=== PATIENT | male | born 1955 | race Caucasian/White ===

== ENCOUNTER 2016-12-29 04:20 | Emergency (ER) | payer OTHER ==
[~2016-12-29] VITALS: Ht 172.7 cm; Wt 88.0 kg
[~2016-12-29 04:20] MED LIST: GLIPIZIDE ER10 M1 PO; HYDROCODONE BIT1 T11 PO; KEFLEX500 M1 PO; LIPITOR10 MG PO; LISINOPRIL10 M1 PO; METFORMIN1000 MG PO; NAPROSYN500 MG PO; ROPINIROLE HYDRO1 MG PO; SILVADENE1% TP
[2016-12-29] MEDS ORDERED: CLINDAMYCIN HC300 MG PO (04:49)
== END 2016-12-29 05:19 | disposition home or self-care (01) ==
LOC: ED 04:20
DX: S00.86XA Insect bite (nonvenomous) of other part of head, initial encounter (principal); L08.9 Local infection of the skin and subcutaneous tissue, unspecified; H57.8 Other specified disorders of eye and adnexa; F17.200 Nicotine dependence, unspecified, uncomplicated; Z79.899 Other long term (current) drug therapy; W57.XXXA Bitten or stung by nonvenomous insect and other nonvenomous arthropods, initial encounter; Y93.9 Activity, unspecified; Y92.9 Unspecified place or not applicable; Y99.9 Unspecified external cause status

== ENCOUNTER → 2017-01-16 | Outpatient (CLI) | payer OTHER ==
[~2017-01-16] MED LIST changes: +CLINDAMYCIN HC300 MG PO
== END | disposition home or self-care (01) ==
LOC: CT 01-13 11:00
DX: J44.9 Chronic obstructive pulmonary disease, unspecified (principal); D50.0 Iron deficiency anemia secondary to blood loss (chronic); J32.2 Chronic ethmoidal sinusitis; H70.92 Unspecified mastoiditis, left ear; J34.2 Deviated nasal septum; I10 Essential (primary) hypertension; E11.9 Type 2 diabetes mellitus without complications; F17.200 Nicotine dependence, unspecified, uncomplicated

== ENCOUNTER 2017-10-22 01:56 | Inpatient (IN) | payer OTHER ==
[2017-10-22] VITALS (32 sets, daily range): BP systolic 83–132; BP diastolic 47–84
[~2017-10-22] VITALS: Ht 172.7 cm; Wt 91.7 kg
--- NOTE | ~2017-10-22 | EKG ---
[place], [place] ELECTROCARDIOGRAM REPORT NAME: KAREN DHILLON UNIT #: [id number] ROOM: [place] [address] DOCTOR: KIM ALVARADO MD,VICKEY BIRTHDATE: [birth year] DOS: 10/22/2017 The electrocardiogram done for the patient on 10/22/2017 at [address] segment elevation to lead 3 aVF and the depression of ST-T segment in lead V2, V3 and the current finding was suggestive highly of inferior myocardial infarction. VICKEY ALVAREZ MD CM:EKGRPT:ELECTROCARDIOGRAM REPORT [id number] VICKEY ALVARADO MD
--- NOTE | ~2017-10-22 | EKG ---
[place], [place] ELECTROCARDIOGRAM REPORT NAME: KAREN DHILLON UNIT #: [id number] ROOM: [place] [address] DOCTOR: KIM ALVARADO MD,VICKEY BIRTHDATE: [birth year] DOS: 10/22/2017 The electrocardiogram done on 10/22/2017 at 02:15 a.m. Heart rate was noted at 70 beats per minute, normal sinus rhythm. APCs were noted. Minimal elevation of ST-T was noted in the 3 and aVF leads. Nonspecific ST-T changes in the chest leads were noted of lead V5 and V6. VICKEY ALVAREZ MD CM:EKGRPT:ELECTROCARDIOGRAM REPORT [id number] VICKEY ALVARADO MD
--- NOTE | ~2017-10-22 | CON ---
[place], [place] REPORT OF CONSULTATION NAME: KAREN DHILLON [facility] #: [id number] UNIT #: [id number] ROOM: [place] [address] DOCTOR: VICKEY PHOENIX MD BIRTHDATE: [birth year] DOS: 10/22/2017 PULMONARY CONSULTATION AND EVALUATION MANAGEMENT CONSULTATION REQUESTED BY: Hospitalist Services. REASON FOR CONSULTATION: Assessment of the current acute respiratory complaints and other reasons. HISTORY OF PRESENT ILLNESS: This is a 61-year-old white male patient with past history of COPD, hypertension, diabetes mellitus. The patient was brought to the hospital as the patient fell down. He has been noted with symptoms of dizziness and passed out on the ground. The patient fall has been noted about 3 times. He has been brought to the hospital for further assessment. The patient has not been noted any symptoms of chest pain at the present time or any chest trauma with the fall. The patient does report symptoms of coughing. The patient with chest congestion, which were noted nonproductive cough. Denies symptoms of wheezing. Tightness in the chest reported. There were no symptoms of angina or orthopnea reported by the patient. The patient has been admitted to the hospital as he was noted significant hypotension as well as the patient presented to the Emergency Room, blood pressure noted 70 systolic. He had been given intervenous fluid as well as ordered the intravenous dopamine. This morning at the time of assessment in the Intensive Care Unit, the patient has been noted much more awake at the present time. He denies symptoms of shortness of breath at the present time. Denies symptoms of nausea or vomiting. REVIEW OF SYSTEMS: CONSTITUTIONAL SYMPTOMS: He was still noted symptoms of fatigue and tiredness. Denies any symptoms of fever or chills at home. EYES: Denies any burning, redness, or tenderness. EARS, NOSE, THROAT SYMPTOMS: Denies sore throat, hoarseness, otalgia, postnasal drainage or epistaxis. CARDIOVASCULAR: The patient denies any symptoms of palpitations, noted dizziness intermittently recently in the past couple of days. Denies any edema or pain in the lower extremities. GASTROINTESTINAL: The patient has been reported with diarrhea for the past 2-3 days, which was described to be nonbloody. There were no symptoms of hematemesis, melena, hematochezia, nausea, vomiting at this time. GENITOURINARY: No dysuria, suprapubic pain, hematuria. MUSCULOSKELETAL: Without any acute joint pain, redness, or tenderness. SKIN: Denies abnormal lesions or rashes. Remaining system was reviewed for the patient, which were noted all negative. PAST MEDICAL HISTORY: The patient was known with history of: 1. Essential hypertension. 2. History of type 2 diabetes mellitus. 3. History of chronic obstructive pulmonary disease and acute chronic heavy nicotine dependence. [place], [place] REPORT OF CONSULTATION NAME: KAREN DHILLON UNIT #: [id number] ROOM: [place] [address] DOCTOR: VICKEY PHOENIX MD BIRTHDATE: [birth year] SOCIAL HISTORY: The patient stated that he is , but from his . He has been noted tobacco user since teenager up to 4 packs of cigarettes a day. The patient used to smoke sometimes, other times a pack of cigarettes per day intermittently. Denies any history of long-term alcohol dependence. Denies history of illicit drug use as well. PAST SURGICAL HISTORY: Described none by the patient. FAMILY HISTORY: Not known by the patient. MEDICATIONS: The medications at home were listed as use of glipizide, lisinopril, metformin, lisinopril, naproxen, clindamycin and Vicodin. ALLERGIES: THE PATIENT REPORTED ALLERGY TO ASPIRIN CAUSING ANAPHYLAXIS. PHYSICAL EXAMINATION: GENERAL: This is a 61-year-old white male who has been currently noted comfortable at this time without any acute distress. Height of 5 feet 8 inches, weight of 202 pounds, BMI 30.7 on admission. VITAL SIGNS: The vital signs which has been recorded shows the blood pressure noted as lowest of 83, previously noted 90, blood pressure later today noted 102/67. The heart rate ranged between 95-100. The respiratory rate recorded as 20-18, temperature noted normal. Pulse oxygen saturation recorded as 98% on 2 liters nasal cannula at rest. HEENT: Head was atraumatic. Eyes nonicterus. NECK: Supple. CARDIOVASCULAR: S1, S2 is audible. LUNGS: Essentially noted generally reduced breath sounds in the lungs bilaterally without any crackles or wheezing at the present time of assessment. ABDOMEN: Noted soft, nontender, bowel sounds present. EXTREMITIES: Without any acute edema, clubbing, cyanosis. CENTRAL NERVOUS SYSTEM: Cranial nerves 2-12 intact. MUSCULOSKELETAL: Without acute deformity. SKIN: Visible skin area no lesions or rashes. LABORATORY DATA: CBC done this morning on admission, WBC count 11.5, hemoglobin 11.5, hematocrit 37.3, platelet count was normal. Lactic acid 1.9. The PT and PTT were noted as normal. Ionized calcium normal 4.55. CMP this morning for the patient's glucose 178, BUN 20, creatinine 1.44. Troponin first set was noted 2.0. Albumin 2.3. Second set troponin 1.80. The third set of troponin elevated at 3.190. CT scan of the head, which was done without contrast was noted without any acute intracranial pathology. CT scan of the cervical spine was also noted without any acute traumatic fracture, dislocation or others. CT scan of the chest, which was done without contrast that was personally reviewed shows evidence of moderate sized bilateral pleural fluid was noted with area of compression atelectasis. There was no gross area of pulmonary consolidation was noted. Haziness noted in the lung parenchyma most likely related to interstitial edema is very likely. Lack of the IV contrast does limit the assessment of the mediastinal structures more accurately; however, small lymph node suspected most likely non-pathological. The electrocardiogram was noted [place], [place] REPORT OF CONSULTATION NAME: KAREN DHILLON UNIT #: [id number] ROOM: [place] [address] DOCTOR: KIM ALVARADO MD,[facility] BIRTHDATE: [birth year] with possibility of inferior myocardial wall infarction. IMPRESSION: 1. The patient has been currently admitted to the hospital noted with hypertension on admission, most likely related to the ST segment elevation myocardial infarction of inferior wall. 2. Bilateral large pleural fluid was noted to moderate size related to the current congestive heart failure. Area of compression atelectasis. There were no signs or symptoms noted at this time for the acute pneumonia. 3. The patient with a history of long-term tobacco use with history of chronic obstructive pulmonary disease, does not seem to have an acute exacerbation at the present time of assessment. 4. Acute kidney injury secondary to hypertension and acute tubular necrosis and congestive heart failure, suspected cardiomyopathy as well. PLAN OF MANAGEMENT: Treatment with the diuretic use of the vasopressor. Cardiology consultation. The patient has been getting therapeutic intervention as it just happened and that will be continued. Bronchodilator will be continued for symptomatic management. Monitor pleural fluid. If necessary, thoracentesis could be done in case of worsening of the pleural fluids. Tobacco abstinence was encouraged. Starting the patient on nicotine replacement patches if the patient develop any nicotine withdrawal symptoms. Other supportive plan of management, care plan and other therapies and usual care. The assessment and management was discussed with Dr. Moiz Alexander. VICKEY ALVAREZ MD CM:CONSTR:REPORT OF CONSULTATION 1438 10/23/17 0605 interface
[~2017-10-22 01:56] MED LIST changes: -LIPITOR10 MG PO; +LIPITOR20 MG PO
[2017-10-22 02:28] LABS: BASO % 0.3 % (0.0-1.0); EOS # 0.2 10*3/uL (0.0-0.4); EOS % 1.4 % (1.0-4.0); HEMATOCRIT 37.3 % (42.0-52.0); HEMOGLOBIN 11.5 g/dl (14.0-18.0); LYMPH # 1.6 10*3/uL (1.3-4.4); LYMPH % 13.5 % (27.0-41.0); MEAN CELL VOLUME 97.9 fl (80.0-94.0); MEAN CORPUSCULAR HGB 30.2 pg (27.0-31.0); MEAN CORPUSCULAR HGB CONC 30.8 g/dl (33.0-37.0); MEAN PLATELET VOLUME 10.4 fl (9.6-12.3); MONO # 0.8 10*3/uL (0.1-1.0); MONO % 6.6 % (3.0-9.0); NEUT % 77.9 % (47.0-73.0); PLATELET COUNT AUTOMATED 243 10*3/uL (130-400); RED BLOOD COUNT 3.81 10*6/uL (4.50-5.90); RED CELL DISTRI WIDTH 14.2 % (0-14.5); WHITE BLOOD COUNT 11.5 10*3/uL (4.8-10.8)
[2017-10-22 02:39] LABS: ACT PARTIAL THROMBO TIME 23.5 SECONDS (20.8-31.5)
[2017-10-22 02:48] LABS: ALBUMIN 2.3 gm/dl (3.1-4.5); ALKALINE PHOSPHATASE 143 U/L (45-117); BUN 20 mg/dl (7-24); CHLORIDE 111 mmol/L (98-107); CREATININE 1.44 mg/dL (0.70-1.30); LIPASE 216 U/L (73-393); POTASSIUM 4.1 mmol/L (3.5-5.1); SGOT/AST 33 IU/L (3-35); SGPT/ALT 23 U/L (12-78); SODIUM 143 mmol/L (136-145); TOTAL PROTEIN 6.4 gm/dL (6.4-8.2)
[2017-10-22] MEDS ORDERED: FEOSOL325 MG PO (13:18)
[2017-10-22] MEDS ORDERED: NEURONTIN800 MG PO (13:19)
[2017-10-22] MEDS ORDERED: REQUIP1 M1 PO (13:20)
[2017-10-22] MEDS ORDERED: INCRUSE ELLI62.5 MCG INH (13:20)
[2017-10-22] MEDS ORDERED: TRAZODONE50 MG PO (13:21)
[2017-10-22] MEDS ORDERED: ERGOCAL2500 UNIT PO (13:22)
[2017-10-22] MEDS ORDERED: PROAIR HFA8.5 GM INH (13:23)
[2017-10-22] MEDS ORDERED: TYLENOL325 M2 PO (13:23)
[2017-10-22 13:49] LABS: BILIRUBIN NEGATIVE (NEGATIVE); BLOOD 2+ (NEGATIVE); CLARITY CLEAR (CLEAR); COLOR YELLOW (YELLOW); GLUCOSE NEGATIVE (NEGATIVE); KETONE NEGATIVE (NEGATIVE); LEUKO ESTERASE NEGATIVE (NEGATIVE); NITRITE NEGATIVE (NEGATIVE); UROBILINOGEN 0.2 E.U./dl (0.2-1.0)
[2017-10-22 13:55] LABS: BACTERIA 1+; RBC 0-2 rbc/hpf (0-2); WBC 16-20 wbc/hpf (0-5)
[2017-10-22] MEDS ORDERED: ATORVASTATIN CA80 M1 PO (16:54)
[2017-10-23] VITALS: BP 83/49
[2017-10-23 01:00] VITALS: BP 100/60
[2017-10-23 02:00] VITALS: BP 106/62
[2017-10-23 03:00] VITALS: BP 113/67
[2017-10-23 03:44] LABS: BASO % 0.4 % (0.0-1.0); EOS # 0.2 10*3/uL (0.0-0.4); HEMOGLOBIN 10.6 g/dl (14.0-18.0); LYMPH # 1.6 10*3/uL (1.3-4.4); LYMPH % 13.9 % (27.0-41.0); MEAN CORPUSCULAR HGB 30.5 pg (27.0-31.0); MEAN CORPUSCULAR HGB CONC 31.2 g/dl (33.0-37.0); MEAN PLATELET VOLUME 10.2 fl (9.6-12.3); MONO % 8.4 % (3.0-9.0); NEUT # 8.5 10*3/uL (2.3-7.9); PLATELET COUNT AUTOMATED 209 10*3/uL (130-400); RED BLOOD COUNT 3.47 10*6/uL (4.50-5.90); RED CELL DISTRI WIDTH 14.3 % (0-14.5); WHITE BLOOD COUNT 11.4 10*3/uL (4.8-10.8)
[2017-10-23 04:00] VITALS: BP 103/61
[2017-10-23 04:00] LABS: ALBUMIN 2.1 gm/dl (3.1-4.5); ALKALINE PHOSPHATASE 123 U/L (45-117); BUN 20 mg/dl (7-24); CHLORIDE 108 mmol/L (98-107); CHOLESTEROL 114 mg/dL (<200); CREATININE 1.38 mg/dL (0.70-1.30); FREE T4 0.84 ng/dl (0.76-1.46); HDL CHOLESTEROL 51 mg/dl (40-60); LDL CHOLESTEROL 40 mg/dL (9-159); PHOSPHOROUS 4.5 mg/dL (2.5-4.9); POTASSIUM 4.1 mmol/L (3.5-5.1); SGOT/AST 101 IU/L (3-35); SGPT/ALT 26 U/L (12-78); SODIUM 142 mmol/L (136-145); TOTAL PROTEIN 5.4 gm/dL (6.4-8.2); TRIGLYCERIDES 113 mg/dl (<150); VLDL CHOLESTEROL 23 mg/dL (6-40)
[2017-10-23 05:00] VITALS: BP 98/50
== END 2017-10-23 05:12 | disposition short-term general hospital (02) | DRG 280 ==
LOC: ED 01:56 → ICCU 04:18 → EDHOLD 04:18 → ICCU 04:58
PROVIDERS: Emergency Medicine Emergency Medical Services; Student in an Organized Health Care Education/Training Program
PROC: 5A1935Z Respiratory Ventilation, Less than 24 Consecutive Hours (ICD-10-PCS; principal; 2017-10-22)
DX: I21.4 Non-ST elevation (NSTEMI) myocardial infarction (principal); E43 Unspecified severe protein-calorie malnutrition; N17.0 Acute kidney failure with tubular necrosis; I13.0 Hypertensive heart and chronic kidney disease with heart failure and stage 1 through stage 4 chronic kidney disease, or unspecified chronic kidney disease; E11.40 Type 2 diabetes mellitus with diabetic neuropathy, unspecified; E11.649 Type 2 diabetes mellitus with hypoglycemia without coma; E11.65 Type 2 diabetes mellitus with hyperglycemia; I50.9 Heart failure, unspecified; E78.5 Hyperlipidemia, unspecified; J44.9 Chronic obstructive pulmonary disease, unspecified; F17.210 Nicotine dependence, cigarettes, uncomplicated; D53.9 Nutritional anemia, unspecified; D72.9 Disorder of white blood cells, unspecified; D72.810 Lymphocytopenia; E87.8 Other disorders of electrolyte and fluid balance, not elsewhere classified; E66.9 Obesity, unspecified; E55.9 Vitamin D deficiency, unspecified; N18.3 Chronic kidney disease, stage 3 (moderate); E11.22 Type 2 diabetes mellitus with diabetic chronic kidney disease; Z82.49 Family history of ischemic heart disease and other diseases of the circulatory system; Z88.6 Allergy status to analgesic agent; Z91.030 Bee allergy status; Z71.6 Tobacco abuse counseling; Z68.31 Body mass index [BMI] 31.0-31.9, adult

== ENCOUNTER 2017-10-24 11:33 | Emergency (ER) | payer OTHER ==
[~2017-10-24] VITALS: Ht 172.7 cm; Wt 93.0 kg
[~2017-10-24 11:33] MED LIST changes: +ATORVASTATIN CA80 M1 PO; +ERGOCAL2500 UNIT PO; +FEOSOL325 MG PO; +INCRUSE ELLI62.5 MCG INH; +NEURONTIN800 MG PO; +PROAIR HFA8.5 GM INH; +REQUIP1 M1 PO; +TRAZODONE50 MG PO; +TYLENOL325 M2 PO
== END 2017-10-24 12:52 | disposition left against medical advice (07) ==
LOC: ED 11:33
DX: R79.9 Abnormal finding of blood chemistry, unspecified (principal); F17.200 Nicotine dependence, unspecified, uncomplicated; Z91.030 Bee allergy status; Z88.6 Allergy status to analgesic agent; Z79.899 Other long term (current) drug therapy

== ENCOUNTER 2017-10-30 03:31 | Inpatient (IN) | payer OTHER ==
[~2017-10-30] VITALS: Ht 172.7 cm; Wt 93.6 kg
[2017-10-30] VITALS (8 sets, daily range): BP systolic 125–163; BP diastolic 68–85
--- NOTE | ~2017-10-30 | CON ---
[place], [place] REPORT OF CONSULTATION NAME: KAREN DHILLON UNIT #: [id number] ROOM: [facility] DOCTOR: VICKEY PHOENIX MD BIRTHDATE: [birth year] DOS: 10/30/2017 REASON FOR CONSULTATION: To assess the patient's current symptoms of shortness of breath. HISTORY OF PRESENT ILLNESS: A 61-year-old white male patient who has been recently known and has been admitted to the hospital this morning. He has been admitted to the hospital noted with increased symptoms of shortness of breath. He has been admitted to the hospital recently and noted with ST segment elevation myocardial infarction involving the inferior myocardial wall. The patient was transferred to [facility]. The patient does not remember the exact workup of intervention clearly. He stated the cardiac catheterization was done, but he signed against medical advice later on. The patient denies any symptoms of chest pain. He does have symptoms of shortness of breath that occurs with exertion with a cough, which has been noted intermittent sputum expectoration. Denies symptoms of hemoptysis. Denies symptoms of chest pain at the present time. Denies symptoms of wheezing. REVIEW OF SYSTEMS: CONSTITUTIONAL: Fatigue and tiredness reported without any symptoms of fever or chills. EYES: Denies burning, redness, tenderness. EAR, NOSE, AND THROAT SYMPTOMS: Denies sore throat, hoarseness, otalgia, postnasal drainage or epistaxis. CARDIOVASCULAR: Denies angina pain at present time, palpitations, edema of the lower extremities, orthopnea. GASTROINTESTINAL: No dysphagia, nausea, vomiting, diarrhea, abdominal pain, hematemesis, melena, hematochezia, abnormal weight loss history. GENITOURINARY: No dysuria, suprapubic pain, hematuria. MUSCULOSKELETAL: No acute joint pain, redness, or tenderness. SKIN: Denies any lesions or rashes. CENTRAL NERVOUS SYSTEM: The patient had syncopal episodes. Remaining systems were reviewed, they were noted all negative. PAST MEDICAL HISTORY: 1. Noted with history of essential hypertension. 2. Chronic obstructive pulmonary disease. 3. Type 2 diabetes mellitus. 4. Coronary artery disease with recent myocardial infarction involving the inferior wall for the patient on 10/22/2017. PAST SURGICAL HISTORY: Possible cardiac catheterization at [facility], medical records were not available. SOCIAL HISTORY: The patient is , but later on. He has noted tobacco use since teenager up to 4 packs of cigarettes per day, stating that he has been currently smoking a pack to [id number] cigarettes per day. Denies any history of alcohol use or any illicit drugs. [place], [place] REPORT OF CONSULTATION NAME: KAREN DHILLON UNIT #: [id number] ROOM: [facility] DOCTOR: VICKEY PHOENIX MD BIRTHDATE: [birth year] FAMILY HISTORY: Unknown. MEDICATIONS: Current administered medication today was noted as use of insulin, heparin intravenously therapeutic dose, temazepam, Lasix intravenously, lorazepam, Vicodin and other p.r.n. medications for different symptoms. DRUG ALLERGIES: NOTED ALLERGY TO ASPIRIN REPORTED WITH ANAPHYLAXIS. PHYSICAL EXAMINATION: GENERAL: A 61-year-old male who has been currently noted without any acute distress, sitting on the side of the bed this morning of assessment at about 8:15 a.m. Height 5 feet 8 inches, weight of 206 pounds, BMI 31.3. VITAL SIGNS: The patient which have been recorded shows the temperature noted as normal, respiratory rate 20-18, heart rate of 96-101, blood pressure 125/71-141/78. Pulse oxygen saturation on 4 liters cannula is 98% saturation. HEENT: Moderate obesity. Examination shows head was atraumatic. Eyes nonicterus. NECK: Supple. CARDIOVASCULAR: S1, S2 is audible. LUNGS: Noted with decreased breath sounds in the lungs for the patient noted in the lower portion of the lungs. There was no wheezing or crackles. ABDOMEN: Noted soft, nontender with [id number] obesity. Bowel sounds present without any tenderness. EXTREMITIES: Noted without any acute edema. CENTRAL NERVOUS SYSTEM: Cranial nerves 2-12 intact. No focal deficit. MUSCULOSKELETAL: Without acute deformities. SKIN: No lesions or rashes. LABORATORY DATA: CBC of this morning: WBC count is normal, hemoglobin 12.1, hematocrit 39.3, platelet count was normal. Lactic acid 1.2. The INR was noted at 0.9. CMP this morning, BUN 17, creatinine 1.31. Albumin of 2.6. Arterial blood gas this morning, 4 liters, pH of 7.37, pCO2 of 51, pO2 of 73. Troponin for the patient 4 sets were noted at one point rather 2.42 and the second troponin noted 1.98. Chest x-ray of the patient that was done, 1 view that was done for this patient shows pleural effusion noted with interstitial edema of the patient as well. IMPRESSION: 1. The patient will be currently admitted to the hospital, appears to have most likely congestive heart failure with non-ST segment elevation myocardial infarction, very likely with associated pleural fluid. 2. The patient will be considered acute hypoxic respiratory failure requiring 4 liters of oxygen supplementation with the O2 noted only 78%. 3. History of nonadherence to the treatment noncompliance. 4. Signing out against medical advice. The patient has poor insight to his known medical illnesses. 5. Long-term tobacco use with COPD seem to have an acute exacerbation at the present time. PLAN OF TREATMENT: Diuretic therapy. Continue oxygen supplement at this time. [place], [place] REPORT OF CONSULTATION NAME: KAREN DHILLON UNIT #: [id number] ROOM: [facility] DOCTOR: KIM ALVARADO MD,VICKEY BIRTHDATE: [birth year] BiPAP only if the oxygen desaturation occurs further and increased oxygen requirement to reduce the work of breathing. Tobacco cessation has been addressed with the patient. The Cardiology consultation was pending. Continue IV heparin to maintain therapeutic PTT for the patient for the acute myocardial infarction protocol. Usual care. Supportive therapy, plan of management and other care. The patient was also noted with evidence which appears like chronic kidney disease stage 3 with stable creatinine noted since previous lab testing of 10/23/2017. VICKEY ALVAREZ MD CM:CONSTR:REPORT OF CONSULTATION 1255 10/31/17 0156 interface
--- NOTE | ~2017-10-30 | EKG ---
[place], [place] ELECTROCARDIOGRAM REPORT NAME: KAREN DHILLON UNIT #: [id number] ROOM: [facility] DOCTOR: KIM ALVARADO MD,VICKEY BIRTHDATE: [birth year] DOS: 10/30/2017 ELECTROCARDIOGRAM REPORT DATE AND TIME OF PROCEDURE: 10/30/2017 at 3:41 a.m. FINDINGS: Sinus tachycardia noted, heart rate of 101 beats per minute. Minimal elevation of lead III and aVF was noted. Nonspecific ST-T changes otherwise noted in the other leads. VICKEY ALVAREZ MD CM:EKGRPT:ELECTROCARDIOGRAM REPORT [id number] VICKEY ALVARADO MD
[~2017-10-30 03:31] MED LIST changes: -ERGOCAL2500 UNIT PO; +VITAMIN D50000 UNIT PO
[2017-10-30 03:49] LABS: BASO % 0.4 % (0.0-1.0); EOS # 0.2 10*3/uL (0.0-0.4); EOS % 1.7 % (1.0-4.0); HEMATOCRIT 39.3 % (42.0-52.0); HEMOGLOBIN 12.1 g/dl (14.0-18.0); LYMPH # 1.9 10*3/uL (1.3-4.4); LYMPH % 19.4 % (27.0-41.0); MEAN CELL VOLUME 98.7 fl (80.0-94.0); MEAN CORPUSCULAR HGB 30.4 pg (27.0-31.0); MEAN CORPUSCULAR HGB CONC 30.8 g/dl (33.0-37.0); MEAN PLATELET VOLUME 10.7 fl (9.6-12.3); MONO # 0.7 10*3/uL (0.1-1.0); MONO % 7.5 % (3.0-9.0); NEUT # 6.9 10*3/uL (2.3-7.9); NEUT % 70.9 % (47.0-73.0); PLATELET COUNT AUTOMATED 254 10*3/uL (130-400); RED BLOOD COUNT 3.98 10*6/uL (4.50-5.90); RED CELL DISTRI WIDTH 14.1 % (0-14.5); WHITE BLOOD COUNT 9.8 10*3/uL (4.8-10.8)
[2017-10-30 03:58] LABS: INTERNATIONAL NORM RATIO 0.9 (2.0-3.5)
[2017-10-30 04:07] LABS: ALBUMIN 2.6 gm/dl (3.1-4.5); ALKALINE PHOSPHATASE 160 U/L (45-117); BUN 17 mg/dl (7-24); CHLORIDE 104 mmol/L (98-107); CREATININE 1.31 mg/dL (0.70-1.30); POTASSIUM 4.8 mmol/L (3.5-5.1); SGOT/AST 27 IU/L (3-35); SGPT/ALT 26 U/L (12-78); SODIUM 140 mmol/L (136-145); TOTAL PROTEIN 7.7 gm/dL (6.4-8.2)
[2017-10-30 06:44] LABS: ABG BASE EXCESS 3.8 mmol/L (-2.0-2.0); ABG HCO3 29.3 mmol/l (22-26); ABG O2 SATURATION 95.1 % (95-97); ARTERIAL BLOOD GAS PCO2 51.6 mmHg (35-45); ARTERIAL BLOOD GAS PH 7.372 (7.35-7.45)
[2017-10-30 07:44] LABS: BILIRUBIN NEGATIVE (NEGATIVE); BLOOD 1+ (NEGATIVE); CLARITY CLEAR (CLEAR); COLOR YELLOW (YELLOW); GLUCOSE NEGATIVE (NEGATIVE); KETONE NEGATIVE (NEGATIVE); LEUKO ESTERASE NEGATIVE (NEGATIVE); NITRITE NEGATIVE (NEGATIVE); SPECIFIC GRAVITY 1.015 (1.005-1.030); UROBILINOGEN 0.2 E.U./dl (0.2-1.0)
[2017-10-30 08:00] LABS: BACTERIA TRACE; WBC 0-2 wbc/hpf (0-5)
== END 2017-10-30 09:15 | disposition left against medical advice (07) | DRG 280 ==
LOC: ED 03:31 → EDHOLD 04:49 → ICCU 05:39
PROVIDERS: Emergency Medicine; Internal Medicine Critical Care Medicine; Student in an Organized Health Care Education/Training Program
PROC: 5A09357 Assistance with Respiratory Ventilation, Less than 24 Consecutive Hours, Continuous Positive Airway Pressure (ICD-10-PCS; principal; 2017-10-30)
DX: I21.4 Non-ST elevation (NSTEMI) myocardial infarction (principal); J96.01 Acute respiratory failure with hypoxia; J44.1 Chronic obstructive pulmonary disease with (acute) exacerbation; J90 Pleural effusion, not elsewhere classified; I11.0 Hypertensive heart disease with heart failure; I50.9 Heart failure, unspecified; E11.9 Type 2 diabetes mellitus without complications; E66.9 Obesity, unspecified; I25.10 Atherosclerotic heart disease of native coronary artery without angina pectoris; F17.210 Nicotine dependence, cigarettes, uncomplicated; Z91.030 Bee allergy status; Z79.899 Other long term (current) drug therapy; I25.2 Old myocardial infarction; Z88.6 Allergy status to analgesic agent; Z68.31 Body mass index [BMI] 31.0-31.9, adult; Z71.6 Tobacco abuse counseling

== ENCOUNTER 2017-11-02 05:59 | Inpatient (IN) | payer OTHER ==
[~2017-11-02] VITALS: Ht 172.7 cm; Wt 92.7 kg
[2017-11-02] VITALS (11 sets, daily range): BP systolic 92–135; BP diastolic 47–80
--- NOTE | ~2017-11-02 | PR ---
[place], [place] PROGRESS NOTE NAME: KAREN DHILLON UNIT #: [id number] ROOM: [place] [address] DOCTOR: ELSIE PARTIDA DO BIRTHDATE: [birth year] DOS: 11/04/2017 CODE NOTE: Code was called on 11/04/2017. I proceeded from the ER to the patient's room. Dr. Alexander and Dr. Forrester were already present along with residents and claims support specialist. The patient was found to be unresponsive, bradycardic in the 40s. He initially did have a pulse. Initial vital signs showed bradycardia and appropriate blood pressure and a pulse ox in the mid 90s on room air. Atropine was administered. Pulses reassessed and found to be absent. CPR and ACLS were begun for PEA. Epinephrine was given according to ACLS guidelines. Intubation was performed by Dr. Alexander. See his intubation note. EKG was obtained during pulse checks, which showed no acute ST elevations. Ultrasound was performed to assess for lung sliding to assess for possible pneumothorax. Lung finding was seen bilaterally. The patient had return of spontaneous circulation. CPR efforts were ceased. The patient was transported to the ICU. He was started on dopamine. Front End Wheel Loader Operator consulted, Dr. Boyce. The patient was subsequently transferred to a tertiary care facility. ELSIE PARTIDA DO CM:PNTRANS [id number] ELSIE PARTIDA DO 11/04/172153 interface
--- NOTE | ~2017-11-02 | PR ---
[place], [place] PROGRESS NOTE [id number] UN[facility] #: [id number] ROOM: [place] [address] DOCTOR: FRANCIS SALAZAR MD BIRTHDATE: [birth year] DOS: 11/04/2017 SUBJECTIVE: The patient was seen in the intensive care unit today 11/04/2017 shortly after a bradycardic arrest. He is a 61-year-old man who initially presented to the [facility] on 10/23/2017 after a syncopal episode. He was found to be in complete heart block and was transferred to the [facility] where catheterization was immediately performed. He got a 30% LAD stenosis with a normal left main. The circumflex and right coronary arteries were both 100% occluded. 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 It was not clear whether this represented a true or pseudoaneurysm. The patient was evaluated by cardiothoracic surgery who stated that he would require extensive surgical repair of the mitral annulus with possible need for left ventricular assist after surgery. It was felt that the surgery was beyond the scope at [facility] and plans were made to transfer him to the [facility]. He was accepted there, but refused the transfer because of concerns that his family would not be able to go there. After that, he reportedly signed himself out against medical advice. He was admitted now to the [facility] on 11/02/2017 with worsening shortness of breath and peripheral edema. He was found to be in heart failure. Troponins were elevated, but it was not clear if this was still due to his initial event or a new event. He has been treated medically at [facility] with some clinical improvement, but his blood pressures have been low. This morning, he apparently did have worsening bradycardia followed by PEA and arrest. He was intubated and successfully resuscitated. He has been transferred to the intensive care unit. Initially, his blood pressure was normal, but he is now developing bradycardia and hypotension again. PHYSICAL EXAMINATION: VITAL SIGNS: Pulse is 47 and regular, blood pressure is 55/30. He is orally intubated. NECK: Supple. I could not see jugular distention. Carotids are full. LUNGS: Respirations are per ventilator. He does have decreased breath sounds at the bases. HEART: Has a regular rhythm. I could not hear any definite murmurs. He does have a third and a fourth heart sound. ABDOMEN: Soft. EXTREMITIES: Showed trace edema. IMPRESSION: 1. 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 At this point, it is not clear whether this is a true aneurysm or pseudoaneurysm. 2. Persistent heart failure. 3. Two-vessel coronary artery disease with occlusion of the circumflex and right coronary arteries. 4. Type 2 diabetes mellitus. 5. Hyperlipidemia. 6. Hypertension. 7. Chronic obstructive pulmonary disease. [place], [place] PROGRESS NOTE NAME: KAREN DHILLON UNIT #: [id number] ROOM: [place] [address] DOCTOR: FRANCIS SALAZAR MD BIRTHDATE: [birth year] PLAN: The patient is critically ill and will require a surgical treatment with mitral valve repair or replacement aneurysmectomy and bypass. The surgeons at [facility] have already determined that this is beyond the scope of their practice; therefore, he will need to be transferred to a quaternary center such as [facility] or [facility]. We thank the hospitalist service at [facility] for asking our advice regarding his care. FRANCIS SALAZAR MD CM:PNTRANS [id number] FRANCIS SALAZAR MD 11/04/17 1510 interface
--- NOTE | ~2017-11-02 | CON ---
[place], [place] REPORT OF CONSULTATION NAME: KAREN DHILLON UNIT #: [id number] ROOM: [place] [address] DOCTOR: VICKEY PHOENIX MD BIRTHDATE: [birth year] DOS: 11/04/2017 PULMONARY CONSULTATION, EVALUATION AND MANAGEMENT CONSULTATION REQUESTED BY: Hospitalist Service. REASON FOR CONSULTATION: Acute cardiopulmonary arrest of the patient with resuscitation and on mechanical ventilator. HISTORY OF PRESENT ILLNESS: This is a 61-year-old white male patient known to me, has been noted history of signing against medical advice without any completing the treatment has been noted with the recent non-myocardial infarction. The patient signed against medical advice from [facility] as well as from [facility] twice. The patient signed against medical advice on 10/30/2017. He has been readmitted to the hospital as a patient who came in the Emergency Room on 10/03/2017. He has been treated on the medical floor where he noted complete unresponsiveness and cardiac arrest with bradycardia initially. The patient started CPR resuscitation performed and was administered the epinephrine injection as well as atropine and other intervention. The patient was also successfully intubated and started on mechanical ventilation. Post-intubation was noted with moving his extremities. He has been noted with the recurrent bradyarrhythmia, which has been treated with use of the Diprivan and other intervention. He was also noted with hypotension, required use of vasopressors as well. The patient has been intubated and remains on mechanical ventilation at this time. He was also noted to have significant severe hypoxic, motor mechanical ventilation, post-intubation. The patient's mechanical ventilator setting were changed at the bedside. He had not been able to give me any history. All the history continue documenting is actually view of current hospitalization and my past assessment of this patient's consultation during his recent assessment. REVIEW OF SYSTEMS: Could not be performed due to the patient's current response and is on mechanical ventilation. PAST MEDICAL HISTORY: 1. ST segment elevation myocardial infarction with inferior wall previously. 2. Type 2 diabetes mellitus. 3. Chronic obstructive pulmonary disease. 4. Essential hypertension. 5. History of poor insight to his medical illness patient and signing against medical advice recently. 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 The patient was suggested surgical intervention that required extensive surgical repair with mitral valve and for the possible needing left ventricular assist device, which was not noted to be possible done in [facility]. The patient's plan was to transfer him to [facility] for further medical [place], [place] REPORT OF CONSULTATION NAME: KAREN DHILLON UNIT #: [id number] ROOM: [place] [address] DOCTOR: KIM ALVARADO MD,VICKEY BIRTHDATE: [birth year] management. SOCIAL HISTORY: Known previously. The patient , but later on. Denies history He has been noted history of tobacco use 4-pack of cigarettes per day and then later on decreased to 1.5 pack of cigarettes a day. Denies history of alcohol use, illicit drug use. FAMILY HISTORY: Unknown. CURRENT MEDICATIONS: Administered noted use of IV dobutamine, propofol and Versed, Lovenox 90 mg subq b.i.d., levothyroxine, Coreg, atorvastatin, trazodone, Requip, Lasix 40 mg IV b.i.d., Aldactone, gabapentin, Rocephin, Zithromax, and other p.r.n. medications administered as well. DRUG ALLERGIES: NOTED ALLERGY TO ASPIRIN CAUSING WITH ANAPHYLAXIS. PHYSICAL EXAMINATION: GENERAL: This is a 61-year-old male for this patient who have been current noted awake and alert without acute distress. Height of 5 feet 8 inches, weight of 195 pounds, BMI 29. VITAL SIGNS: For the patient which were recorded shows the temperature noted as 96 degree Fahrenheit to normal temperature, respiratory rate 16-20, heart rate of 76. It was noted as low as 41. The blood pressure noted as 72/30-150/65. Intake for the patient 1300 mL, the output was 525, pulse oxygen saturation was noted as low as 84% on 100% oxygen, then later on 97% after adjustment of mechanical ventilation done personally at the bedside. HEENT: The patient currently orally intubated. Endotracheal tube in place. Head was atraumatic. NECK: Supple. CARDIOVASCULAR SYSTEM: S1, S2 is audible. LUNGS: Noted with moderate decreased breath sounds in the lungs are noted bilaterally. ABDOMEN: Noted soft severely obese. EXTREMITIES: Noted with mild obesity. CENTRAL NERVOUS SYSTEM: Currently, patient is sedated and also noted with recent cardiopulmonary arrest, cannot be further assessed. MUSCULOSKELETAL: No obvious deformities. SKIN: Visible skin. No lesions or rashes. LABORATORY DATA: The patient's chest x-ray post-intubation, endotracheal tube and cardiac arrest for the patient resuscitation. Estimated pulmonary edema picture was noted endotracheal tube and NG tube in place. Arterial blood gas of the patient during resuscitation pH of 7.15, pCO2 of 63, pO2 of 155. Blood culture of the patient was noted as no bacterial growth. CMP on 11/04/2017, BUN 52, creatinine 2.01, glucose 232. CBC for the patient on 11/04/2017 WBC count 12.7, hemoglobin 8.3, hematocrit 28.1, platelet count 210,000. The glucose 383 earlier. The arterial blood gas on 3rd of this month, pH of 7.38, pCO2 of 43, pO2 73 with an oxygen supplementation nasal cannula. The BMP of the patient was noted BUN 20, creatinine 1.30. [place], [place] REPORT OF CONSULTATION NAME: KAREN DHILLON UNIT #: [id number] ROOM: [place] [address] DOCTOR: KIM ALVARADO MD,[facility] BIRTHDATE: [birth year] IMPRESSION: 1. Currently noted with a bradycardic arrest for this patient noted acute cardiopulmonary arrest, successful resuscitation. 2. Hypertension secondary to acute myocardial infarction, acute pulmonary edema, second acute myocardial infarction, possibly inferior myocardial infarction would be considered. 3. Mild obesity. 4. History of noncompliance. 5. History of chronic obstructive pulmonary disease without any acute exacerbation and acute chronic heavy nicotine dependence. 6. History of hypothyroidism. 7. Acute kidney injury, exactly current decreased perfusion with acute tubular necrosis for the patient is very likely with current cardiopulmonary arrest. 8. Aneurysm for the patient noted in the anterolateral portion of the heart for this patient as well. PLAN OF MANAGEMENT : 1. The patient will be continued vasopressor therapy. Mechanical ventilator setting has been changed at the bedside of the patient for about 25 minutes with adequate oxygen saturation noted. The patient assist control, volume control, mechanical ventilation, tidal volume 550 mL, and PEEP of 10.0. The current mechanical ventilator settings will be continued for about 2 hours with arterial blood gas will be done after that to further assessed and make the changes. Diuretic will be continued. Continue anticoagulation recommended for patient and ordered by the Cardiology Services as Lovenox, the dose might need to be adjusted done for the patient because the current kidney injury. Other supportive therapy, plan of management. Continue as well as previously. Usual care, other supportive plan of therapy of the patient and management as in progress. Additional treatment changes to be made for the patient based on the progression of the illness. The patient could be started nutrition support later on. Ventilator bundle management will be initiated as well. The patient was planned for the patient transferred to the tertiary care center for the complex surgery, needing for the heart. Sedation to be continued. Total time for pulmonary critical care evaluation and management today total time 40 minutes. VICKEY ALVAREZ MD CM:CONSTR:REPORT OF CONSULTATION 1929 11/05/17 0259 interface
--- NOTE | ~2017-11-02 | PR ---
[place], [place] PROGRESS NOTE NAME: KAREN DHILLON UNIT #: [id number] ROOM: [place] [address] DOCTOR: LIONEL CHUA DO BIRTHDATE: [birth year] DOS: 11/04/2017 PROCEDURE: Endotracheal intubation. PROCEDURE NOTE: This is a 61-year-old male currently admitted on the hospitalist service. The patient developed worsening bradycardia and became unresponsive and a code blue was called. Intubation was performed without rapid sequence medications. A size 7.5 endotracheal tube was inserted into the trachea with direct visualization of the vocal cords. There was good breath sounds bilaterally. There were no complications during the procedure. LIONEL CHUA DO CM:PNABDIEL [id number] LIONEL CHUA DO 11/04/17 1351 interface
[2017-11-02 06:40] LABS: BASO % 0.4 % (0.0-1.0); EOS # 0.3 10*3/uL (0.0-0.4); EOS % 2.8 % (1.0-4.0); HEMATOCRIT 30.4 % (42.0-52.0); HEMOGLOBIN 9.4 g/dl (14.0-18.0); LYMPH # 2.2 10*3/uL (1.3-4.4); LYMPH % 24.6 % (27.0-41.0); MEAN CELL VOLUME 98.1 fl (80.0-94.0); MEAN CORPUSCULAR HGB 30.3 pg (27.0-31.0); MEAN CORPUSCULAR HGB CONC 30.9 g/dl (33.0-37.0); MEAN PLATELET VOLUME 10.6 fl (9.6-12.3); MONO # 0.8 10*3/uL (0.1-1.0); MONO % 8.9 % (3.0-9.0); NEUT # 5.6 10*3/uL (2.3-7.9); NEUT % 63.1 % (47.0-73.0); PLATELET COUNT AUTOMATED 217 10*3/uL (130-400); WHITE BLOOD COUNT 8.9 10*3/uL (4.8-10.8)
[2017-11-02 06:48] LABS: ACT PARTIAL THROMBO TIME 24.8 SECONDS (20.8-31.5)
[2017-11-02 06:56] LABS: ALBUMIN 2.2 gm/dl (3.1-4.5); ALKALINE PHOSPHATASE 127 U/L (45-117); BUN 23 mg/dl (7-24); CHLORIDE 105 mmol/L (98-107); POTASSIUM 4.5 mmol/L (3.5-5.1); SGOT/AST 18 IU/L (3-35); SGPT/ALT 19 U/L (12-78); SODIUM 141 mmol/L (136-145); TOTAL PROTEIN 6.1 gm/dL (6.4-8.2)
[2017-11-02 07:25] LABS: ABG HCO3 27.3 mmol/l (22-26); ABG O2 SATURATION 94.3 % (95-97); ARTERIAL BLOOD GAS PH 7.389 (7.35-7.45); ARTERIAL BLOOD GAS PO2 73.2 mmHg (80-90)
[2017-11-03] VITALS (7 sets, daily range): BP systolic 98–126; BP diastolic 44–72
[2017-11-03 05:45] LABS: BASO % 0.2 % (0.0-1.0); EOS % 0.5 % (1.0-4.0); HEMATOCRIT 29.8 % (42.0-52.0); LYMPH # 0.5 10*3/uL (1.3-4.4); LYMPH % 8.6 % (27.0-41.0); MEAN CELL VOLUME 99.3 fl (80.0-94.0); MEAN CORPUSCULAR HGB CONC 30.2 g/dl (33.0-37.0); MEAN PLATELET VOLUME 11.1 fl (9.6-12.3); MONO # 0.1 10*3/uL (0.1-1.0); NEUT # 5.6 10*3/uL (2.3-7.9); NEUT % 89.4 % (47.0-73.0); PLATELET COUNT AUTOMATED 197 10*3/uL (130-400); RED CELL DISTRI WIDTH 13.7 % (0-14.5); WHITE BLOOD COUNT 6.3 10*3/uL (4.8-10.8)
[2017-11-03 06:01] LABS: BUN 30 mg/dl (7-24); CHLORIDE 104 mmol/L (98-107); CREATININE 1.36 mg/dL (0.70-1.30); FREE T4 0.78 ng/dl (0.76-1.46); PHOSPHOROUS 4.6 mg/dL (2.5-4.9); POTASSIUM 5.3 mmol/L (3.5-5.1); SODIUM 143 mmol/L (136-145)
[2017-11-03 06:13] LABS: TROPONIN I 0.834 ng/ml (<0.045)
[2017-11-04] VITALS (24 sets, daily range): BP systolic 41–195; BP diastolic 25–113
[2017-11-04 06:11] LABS: BASO % 0.1 % (0.0-1.0); EOS % 0.1 % (1.0-4.0); HEMATOCRIT 28.1 % (42.0-52.0); HEMOGLOBIN 8.3 g/dl (14.0-18.0); LYMPH % 8.2 % (27.0-41.0); MEAN CELL VOLUME 101.4 fl (80.0-94.0); MEAN CORPUSCULAR HGB CONC 29.5 g/dl (33.0-37.0); MEAN PLATELET VOLUME 11.1 fl (9.6-12.3); MONO # 0.7 10*3/uL (0.1-1.0); MONO % 5.5 % (3.0-9.0); NEUT # 10.9 10*3/uL (2.3-7.9); NEUT % 85.5 % (47.0-73.0); PLATELET COUNT AUTOMATED 210 10*3/uL (130-400); RED BLOOD COUNT 2.77 10*6/uL (4.50-5.90); RED CELL DISTRI WIDTH 13.8 % (0-14.5); WHITE BLOOD COUNT 12.7 10*3/uL (4.8-10.8)
[2017-11-04 06:33] LABS: CREATININE 2.01 mg/dL (0.70-1.30); POTASSIUM 4.9 mmol/L (3.5-5.1); TOTAL PROTEIN 5.6 gm/dL (6.4-8.2)
[2017-11-04 11:49] LABS: ABG HCO3 21.3 mmol/l (22-26); ABG O2 SATURATION 98.7 % (95-97); ARTERIAL BLOOD GAS PCO2 63.4 mmHg (35-45)
[2017-11-04 11:58] LABS: ABG BASE EXCESS -7.9 mmol/L (-2.0-2.0); ARTERIAL BLOOD GAS PH 7.145 (7.35-7.45)
[2017-11-04 14:10] LABS: ABG HCO3 22.1 mmol/l (22-26); ABG O2 SATURATION 99.2 % (95-97); ARTERIAL BLOOD GAS PCO2 54.4 mmHg (35-45); ARTERIAL BLOOD GAS PH 7.226 (7.35-7.45)
[2017-11-04 14:14] LABS: ABG BASE EXCESS -5.8 mmol/L (-2.0-2.0)
== END 2017-11-04 16:14 | disposition short-term general hospital (02) | DRG 871 ==
LOC: ED 05:59 → EDHOLD 08:48 → 4E 08:48 → ICCU 08:48 → 4E 08:52 → ICCU 11-04 11:35
PROVIDERS: Internal Medicine; Internal Medicine Critical Care Medicine; Student in an Organized Health Care Education/Training Program
PROC: 5A12012 Performance of Cardiac Output, Single, Manual (ICD-10-PCS; principal; 2017-11-04)
PROC: 02HV33Z Insertion of Infusion Device into Superior Vena Cava, Percutaneous Approach (ICD-10-PCS; 2017-11-04)
PROC: B548ZZA Ultrasonography of Superior Vena Cava, Guidance (ICD-10-PCS; 2017-11-04)
PROC: 03HB33Z Insertion of Infusion Device into Right Radial Artery, Percutaneous Approach (ICD-10-PCS; 2017-11-04)
PROC: 0BH17EZ Insertion of Endotracheal Airway into Trachea, Via Natural or Artificial Opening (ICD-10-PCS; 2017-11-04)
PROC: B34HZZZ Ultrasonography of Right Upper Extremity Arteries (ICD-10-PCS; 2017-11-04)
DX: A41.9 Sepsis, unspecified organism (principal); I21.4 Non-ST elevation (NSTEMI) myocardial infarction; J96.01 Acute respiratory failure with hypoxia; I46.9 Cardiac arrest, cause unspecified; E43 Unspecified severe protein-calorie malnutrition; N17.0 Acute kidney failure with tubular necrosis; J18.9 Pneumonia, unspecified organism; I95.9 Hypotension, unspecified; I25.3 Aneurysm of heart; J44.1 Chronic obstructive pulmonary disease with (acute) exacerbation; J44.0 Chronic obstructive pulmonary disease with (acute) lower respiratory infection; E11.40 Type 2 diabetes mellitus with diabetic neuropathy, unspecified; I11.0 Hypertensive heart disease with heart failure; I50.9 Heart failure, unspecified; R65.20 Severe sepsis without septic shock; E11.65 Type 2 diabetes mellitus with hyperglycemia; D53.9 Nutritional anemia, unspecified; D72.810 Lymphocytopenia; E55.9 Vitamin D deficiency, unspecified; E78.5 Hyperlipidemia, unspecified; E66.9 Obesity, unspecified; I25.10 Atherosclerotic heart disease of native coronary artery without angina pectoris; Z99.81 Dependence on supplemental oxygen; Z72.0 Tobacco use; Z88.8 Allergy status to other drugs, medicaments and biological substances; Z91.030 Bee allergy status; Z79.899 Other long term (current) drug therapy; Z68.29 Body mass index [BMI] 29.0-29.9, adult

== ENCOUNTER → 2017-11-17 | Outpatient (CLI) | payer OTHER ==
[2017-11-17 15:18] LABS: CREATININE 1.67 mg/dL (0.70-1.30)
== END | disposition home or self-care (01) ==
LOC: LAB 14:49
DX: E87.8 Other disorders of electrolyte and fluid balance, not elsewhere classified (principal)

== ENCOUNTER → 2017-12-11 | Outpatient (CLI) | payer OTHER ==
[2017-12-11 15:01] LABS: BUN 29 mg/dl (7-24); CHLORIDE 106 mmol/L (98-107); POTASSIUM 4.3 mmol/L (3.5-5.1); SODIUM 143 mmol/L (136-145)
== END | disposition home or self-care (01) ==
LOC: LAB 13:58
PROVIDERS: Physician Assistant Surgical
DX: E87.5 Hyperkalemia (principal)

== ENCOUNTER → 2017-12-12 | Outpatient (CLI) | payer OTHER ==
[2017-12-12 13:58] LABS: BUN 24 mg/dl (7-24); CHLORIDE 107 mmol/L (98-107); POTASSIUM 4.2 mmol/L (3.5-5.1); SODIUM 143 mmol/L (136-145)
== END | disposition home or self-care (01) ==
LOC: LAB 00:55
PROVIDERS: Physician Assistant Surgical
DX: E87.5 Hyperkalemia (principal)

== ENCOUNTER → 2017-12-13 | Outpatient (CLI) | payer OTHER ==
[2017-12-13 14:05] LABS: BUN 19 mg/dl (7-24); CHLORIDE 109 mmol/L (98-107); CREATININE 1.14 mg/dL (0.70-1.30); POTASSIUM 4.2 mmol/L (3.5-5.1); SODIUM 146 mmol/L (136-145)
== END | disposition home or self-care (01) ==
LOC: LAB 00:21
PROVIDERS: Physician Assistant Surgical
DX: E87.5 Hyperkalemia (principal)

== ENCOUNTER → 2018-01-01 | Outpatient (CLI) | payer OTHER ==
[2018-01-01 09:20] LABS: BASO # 0.1 10*3/uL (0.0-0.1); BASO % 0.6 % (0.0-1.0); EOS # 0.6 10*3/uL (0.0-0.4); EOS % 6.8 % (1.0-4.0); HEMATOCRIT 29.5 % (42.0-52.0); HEMOGLOBIN 9.1 g/dl (14.0-18.0); LYMPH # 1.4 10*3/uL (1.3-4.4); LYMPH % 17.3 % (27.0-41.0); MEAN CELL VOLUME 95.8 fl (80.0-94.0); MEAN CORPUSCULAR HGB 29.5 pg (27.0-31.0); MEAN CORPUSCULAR HGB CONC 30.8 g/dl (33.0-37.0); MEAN PLATELET VOLUME 9.8 fl (9.6-12.3); MONO # 0.8 10*3/uL (0.1-1.0); MONO % 9.3 % (3.0-9.0); NEUT # 5.4 10*3/uL (2.3-7.9); NEUT % 65.8 % (47.0-73.0); PLATELET COUNT AUTOMATED 231 10*3/uL (130-400); RED BLOOD COUNT 3.08 10*6/uL (4.50-5.90); RED CELL DISTRI WIDTH 17.4 % (0-14.5); WHITE BLOOD COUNT 8.2 10*3/uL (4.8-10.8)
[2018-01-01 09:47] LABS: CREATININE 1.58 mg/dL (0.70-1.30); POTASSIUM 4.6 mmol/L (3.5-5.1); TOTAL PROTEIN 6.9 gm/dL (6.4-8.2)
== END | disposition home or self-care (01) ==
LOC: LAB 08:59
PROVIDERS: Internal Medicine
DX: I12.9 Hypertensive chronic kidney disease with stage 1 through stage 4 chronic kidney disease, or unspecified chronic kidney disease (principal); E11.22 Type 2 diabetes mellitus with diabetic chronic kidney disease; N18.2 Chronic kidney disease, stage 2 (mild); E11.42 Type 2 diabetes mellitus with diabetic polyneuropathy

== ENCOUNTER → 2019-02-06 | Outpatient (CLI) | payer OTHER ==
[~2019-02-06] MED LIST changes: +ATORVASTATIN CA20 M1 PO; +CLOPIDOGREL75 MG PO; +COLACE100 MG PO; +Ipratropium Brom3 ML INH; +LASIX40 MG PO; +LEVAQUIN500 M2 PO; +NEBULIZER PO; +NEURONTIN600 MG PO; +NICODERM CQ1 EAC1 T; +PREDNISONE10 MG PO; +ZESTRIL10 MG PO; +ZESTRIL20 MG PO
[2019-02-06 08:47] LABS: BASO % 0.4 % (0.0-1.0); EOS # 0.4 10*3/uL (0.0-0.4); EOS % 4.5 % (1.0-4.0); HEMOGLOBIN 11.6 g/dl (14.0-18.0); LYMPH # 1.9 10*3/uL (1.3-4.4); LYMPH % 23.8 % (27.0-41.0); MEAN CELL VOLUME 99.7 fl (80.0-94.0); MEAN CORPUSCULAR HGB 32.1 pg (27.0-31.0); MEAN CORPUSCULAR HGB CONC 32.2 g/dl (33.0-37.0); MEAN PLATELET VOLUME 10.5 fl (9.6-12.3); MONO # 0.8 10*3/uL (0.1-1.0); MONO % 9.6 % (3.0-9.0); NEUT % 61.3 % (47.0-73.0); PLATELET COUNT AUTOMATED 160 10*3/uL (130-400); RED BLOOD COUNT 3.61 10*6/uL (4.50-5.90); RED CELL DISTRI WIDTH 12.6 % (0-14.5); WHITE BLOOD COUNT 8.2 10*3/uL (4.8-10.8)
[2019-02-06 08:56] LABS: URINE CREATININE RANDOM 71.7 mg/dL
[2019-02-06 09:13] LABS: ALBUMIN 3.2 gm/dl (3.1-4.5); CREATININE 2.27 mg/dL (0.70-1.30); PHOSPHOROUS 5.4 mg/dL (2.5-4.9); POTASSIUM 4.6 mmol/L (3.5-5.1)
[2019-02-06 09:19] LABS: BILIRUBIN NEGATIVE (NEGATIVE); BLOOD TRACE-INTACT (NEGATIVE); CLARITY SL CLOUDY (CLEAR); COLOR YELLOW (YELLOW); GLUCOSE NEGATIVE (NEGATIVE); KETONE NEGATIVE (NEGATIVE); LEUKO ESTERASE NEGATIVE (NEGATIVE); NITRITE NEGATIVE (NEGATIVE); SPECIFIC GRAVITY 1.025 (1.005-1.030); UROBILINOGEN 0.2 E.U./dl (0.2-1.0)
[2019-02-06 09:45] LABS: FERRITIN 149.5 ng/mL (22.0-322.0); PTH INTACT 46.2 pg/mL (18.5-88.0); VITAMIN D, 25-HYDROXY 26.6 ng/mL (30-100)
== END | disposition home or self-care (01) ==
LOC: LAB 08:24
PROVIDERS: Internal Medicine Nephrology
DX: N18.3 Chronic kidney disease, stage 3 (moderate) (principal); E55.9 Vitamin D deficiency, unspecified; D63.1 Anemia in chronic kidney disease; N25.81 Secondary hyperparathyroidism of renal origin

== ENCOUNTER → 2020-02-17 | Outpatient (CLI) | payer OTHER ==
[~2020-02-17] MED LIST changes: +COMBIVENT RESPIM4 GM INH; +FERROUS SULFAT325 MG PO; +FUROSEMIDE40 MG PO; +NEURONTIN300 MG PO; -NEURONTIN600 MG PO; +PLAVIX75 M1 PO; +POTASSIUM CHLO20 ME4 PO; +REQUIP0.25 M1 PO; -ZESTRIL10 MG PO
[2020-02-17 11:17] LABS: BASO % 0.4 % (0.0-1.0); EOS # 0.3 10*3/uL (0.0-0.4); EOS % 4.1 % (1.0-4.0); HEMATOCRIT 27.5 % (42.0-52.0); LYMPH # 0.9 10*3/uL (1.3-4.4); LYMPH % 12.2 % (27.0-41.0); MEAN CORPUSCULAR HGB 30.7 pg (27.0-31.0); MEAN CORPUSCULAR HGB CONC 28.7 g/dl (33.0-37.0); MEAN PLATELET VOLUME 10.3 fl (9.6-12.3); MONO # 0.6 10*3/uL (0.1-1.0); MONO % 7.6 % (3.0-9.0); NEUT # 5.6 10*3/uL (2.3-7.9); NEUT % 75.4 % (47.0-73.0); PLATELET COUNT AUTOMATED 169 10*3/uL (130-400); RED BLOOD COUNT 2.57 10*6/uL (4.50-5.90); RED CELL DISTRI WIDTH 14.6 % (0-14.5); WHITE BLOOD COUNT 7.5 10*3/uL (4.8-10.8)
[2020-02-17 11:28] LABS: ALBUMIN 3.2 gm/dl (3.1-4.5); CREATININE 7.44 mg/dL (0.70-1.30)
== END | disposition home or self-care (01) ==
LOC: LAB 11:00
PROVIDERS: Internal Medicine Nephrology
DX: N17.9 Acute kidney failure, unspecified (principal)

== ENCOUNTER → 2020-02-21 | Outpatient (CLI) | payer OTHER ==
[2020-02-21 08:25] LABS: HEMATOCRIT 27.6 % (42.0-52.0); MEAN CELL VOLUME 108.7 fl (80.0-94.0); MEAN CORPUSCULAR HGB 31.1 pg (27.0-31.0); MEAN CORPUSCULAR HGB CONC 28.6 g/dl (33.0-37.0); MEAN PLATELET VOLUME 11.2 fl (9.6-12.3); PLATELET COUNT AUTOMATED 154 10*3/uL (130-400); RED BLOOD COUNT 2.54 10*6/uL (4.50-5.90); RED CELL DISTRI WIDTH 14.8 % (0-14.5); WHITE BLOOD COUNT 8.4 10*3/uL (4.8-10.8)
[2020-02-21 09:08] LABS: BASOPHILS 1 % (0-1); PLATELET SUFFICIENCY NORMAL (NORMAL); TOTAL CELLS COUNTED 100 #CELLS
[2020-02-21 09:24] LABS: ACT PARTIAL THROMBO TIME 28.4 SECONDS (20.0-32.1)
[2020-02-22 06:08] LABS: HEP B CORE AB, IGM Negative (Negative); HEPATITIS B SURFACE AB Non Reactive (.); HEPATITIS B SURFACE AG Negative (Negative); HEPATITIS C VIRUS ANTIBODY 0.1 s/co (0.0-0.9)
== END | disposition home or self-care (01) ==
LOC: LAB 07:45
PROVIDERS: Internal Medicine Nephrology
DX: N18.6 End stage renal disease (principal)

== ENCOUNTER → 2020-02-21 | Day surgery (SDC) | payer OTHER ==
[~2020-02-21] VITALS: Ht 160 cm; Wt 102.1 kg
[2020-02-21 08:29] VITALS: BP 120/66
--- NOTE | 2020-02-21 10:25 | NUR ---
1000- DR. ANAND EXPLAINED DIALYSIS CATHETER INSERTION TO PATIENT AND SIGNIFICANT OTHER. PATIENT REFUSES PROCEDURE. UP, DRESSED, AND DISCHARGED VIA WHEELCHAIR. DR. BORGES AND NORBERTOI NOTIFIED.
== END | disposition home or self-care (01) ==
LOC: SDC 01:56
DX: Z53.1 Procedure and treatment not carried out because of patient's decision for reasons of belief and group pressure (principal); I13.2 Hypertensive heart and chronic kidney disease with heart failure and with stage 5 chronic kidney disease, or end stage renal disease; N18.6 End stage renal disease; I50.9 Heart failure, unspecified; E11.22 Type 2 diabetes mellitus with diabetic chronic kidney disease; I25.2 Old myocardial infarction; J44.9 Chronic obstructive pulmonary disease, unspecified; E78.00 Pure hypercholesterolemia, unspecified; M19.90 Unspecified osteoarthritis, unspecified site; Z87.891 Personal history of nicotine dependence; Z98.890 Other specified postprocedural states; Z79.899 Other long term (current) drug therapy

== ENCOUNTER 2020-02-22 12:27 | Inpatient (IN) | payer OTHER ==
[~2020-02-22] VITALS: Ht 172.7 cm; Wt 116.1 kg
--- NOTE | 2020-02-22 10:15 | NUR ---
REPEAT BLOOD SUGAR IS 73, PATIENT AWAKENS EASILY TO VOICE, REORIENTATION EFFORTS MADE AT THIS TIME. PATIENT FOLLOWS SIMPLE COMMANDS BUT DOES NOT ANSWER OR NOD WHEN ASKED. RN WILL CONTINUE TO MONITOR
[2020-02-22 12:46] VITALS: BP 94/71
--- NOTE | 2020-02-22 13:20 | NUR ---
PATIENT PULSE OX IS AT 90% ON 3L NC. O2 INCREASED TO 4L NC. PATIENT NORMALLY WEARS 3L NC.
[2020-02-22 13:22] VITALS: BP 105/34
[2020-02-22 13:34] LABS: HEMATOCRIT 27.2 % (42.0-52.0); MEAN CELL VOLUME 108.8 fl (80.0-94.0); MEAN CORPUSCULAR HGB 30.8 pg (27.0-31.0); MEAN CORPUSCULAR HGB CONC 28.3 g/dl (33.0-37.0); MEAN PLATELET VOLUME 10.7 fl (9.6-12.3); PLATELET COUNT AUTOMATED 141 10*3/uL (130-400); RED CELL DISTRI WIDTH 14.6 % (0-14.5)
[2020-02-22 13:44] LABS: ABG BASE EXCESS -11.9 mmol/L (-2.0-2.0)
[2020-02-22 13:47] LABS: ARTERIAL BLOOD GAS PH 7.022 (7.35-7.45)
[2020-02-22 13:49] LABS: ALBUMIN 3.2 gm/dl (3.1-4.5); CREATININE 8.6 mg/dL (0.70-1.30); TOTAL PROTEIN 6.6 gm/dL (6.4-8.2)
[2020-02-22 13:52] LABS: PLATELET SUFFICIENCY NORMAL (NORMAL); SCHISTOCYTES FEW; TOTAL CELLS COUNTED 100 #CELLS
[2020-02-22 13:53] LABS: ACANTHOCYTES FEW
[2020-02-22 13:57] LABS: POTASSIUM 6.4 mmol/L (3.5-5.1)
--- NOTE | 2020-02-22 13:57 | NUR ---
PATIENT PLACED ON BIPAP AT 18/6 WITH 40% OXYGEN. RATE IS 19 BPM,VT IS 590 ML, LEAK IS 30. PER DR ORDERS. HEART RATE 66 AND SPO2:96%
[2020-02-22 14:12] VITALS: BP 136/57
[2020-02-22 15:01] VITALS: BP 147/75
--- NOTE | 2020-02-22 15:23 | NUR ---
PATIENT HAS ECCHYMOTIC AREA TO LEFT BREAST, HEALED SCAB TO LEFT FOREARM, ABRASION TO LEFT LOWER QUADRANT ABDOMEN ABRASION ALSO NOTED WHEN TAKING PICTURES. WOUNDS NOTED IN WOUND ASSESSMENT DOCUMENTATION AREA. PICTURES TAKEN OF WOUNDS NOTED AND CAMERA PLACED INTO THE BASKET.
--- NOTE | 2020-02-22 16:05 | NUR ---
A 64, admitted to 5E, under the services of KIZZY Nunez DO with a diagnosis of CHANGE IN MENTAL STATUS . Chief complaint is LETHARGIC, SOB. Patient arrived via stretcher from ER. Monitor applied. Initial assessment completed. Vital signs taken and recorded. KIZZY NUNEZ DO notified of admission to the unit. Orders received. See assessment for past medical history, medications and allergies. Patient and/or family oriented to unit. [facility] visitation policy reviewed. Clothing/patient valuable form completed. JUAN F MACK
--- NOTE | 2020-02-22 16:05 | NUR ---
REPORT GIVEN TO JUAN F RUST AT THIS TIME. PATIENT TRANSPORTED TO 5TH FLOOR BY GIORGI RUST. NO CHANGE IN PATIENT STATUS.
[2020-02-22] MEDS ORDERED: POTASSIUM CHLO20 ME4 PO (16:20)
[2020-02-22] MEDS ORDERED: COMBIVENT RESPIM4 GM INH (16:21)
[2020-02-22 16:33] LABS: ABG BASE EXCESS -9.6 mmol/L (-2.0-2.0)
[2020-02-22 16:42] LABS: ARTERIAL BLOOD GAS PH 7.115 (7.35-7.45)
--- NOTE | 2020-02-22 16:51 | NUR ---
DR BORGES ANSWERING SERVICE NOTIFIED OF CONSULT
--- NOTE | 2020-02-22 17:01 | NUR ---
CAITLYN WITH DR ALVAREZ REGARDING CONSULT
--- NOTE | 2020-02-22 17:25 | NUR ---
RECEIVED FROM VIA BED PER DR ALVAREZ ORDER. SPOKE WITH DR TEE AND CHECKING TO SEE IF THERE IS A HPOA/LW IN THE CHART..bipap on patient and patient remains lethargic..SCD placed on patient..NSR on monitor
--- NOTE | 2020-02-22 18:30 | NUR ---
PER THE PATIENT DELMIS OWNES IS HIS POA.. DR ESCALANTE CAME TO TALK WITH PATIENT..ANESTHESIA IS IN ROUTE..
--- NOTE | 2020-02-22 18:40 | NUR ---
DR TEE SPOKE WITH DR TAI AND HE CAN'T PLACE LINE UNTIL TOMORROW..NURSE SPOKE WITH DR KOCH WHO SAID TO TRANSFER THE PATIENT OUT THEY WILL NOT ACCEPT HIM DUE TO PATIENT MORE THAN ONCE VERBALLY REFUSING TO ALLOW DIALYSIS CATHETER PLACEMENT AND DEMANDED WHAT WAS PLACED LAST ADMISSION TO BE REMOVED THEN LEFT AMA. PATIENT AGAIN CAME IN FOR A LINE PLACEMENT OUT-PATIENT YESTERDAY TO SURGERY THEN REFUSED AND SIGNED OUT AGAIN AMA SAYING HE WAS NOT GOING TO DO IT.. DR TEE NOTIFIED AND HE SPOKE WITH DR LUNA WHO SAID SHE WOULD ACCEPT HIM BUT SUGGESTED HE BE SENT OUT TO BE STABILIZED FIRST.. DR TEE THEN SPOKE WITH DR BORGES AFTER DR BORGES CALLED IN AND SPOKE WITH THE NURSE TO SEE WHAT THE SITUATION WAS..
--- NOTE | 2020-02-22 19:03 | NUR ---
Infomed consent obtained from patient and family by Dr. TEE & DR ESCALANTE for elective intubation. Patient intubated with 8 Polish endotracheal tube orally X 1 attempts. Patient sedated with PROPOFOL & KETAMINE Respiratory therapy at bedside. Crash cart with emergency drugs available. Endotracheal tube inflated with 10cc's. Lungs auscultated for equality of breath sounds. Tube secured with Tube tamer at 23cm's. at level of LIP. Patient tolerated procedure FAIR. Portable chest X-ray obtained and reviewed for tube placement. Patient connected to ventilator CMV mode, 550 tidal volume, 40 FIO2, 5 PEEP, and 0 pressure support. #18 OGT INSERTED WITHOUT DIFFICULTY...#16 NICOLE PLACED WITHOUT DIFFICULTY FOR CLOUDY URINE..SPUTUM, URINE & BLOOD CULTURES SENT..RAN IV SECURE & PATENT AT THIS TIME TROY OLIVO
[2020-02-22 19:52] LABS: BACTERIA 4+; BILIRUBIN NEGATIVE; BLOOD 3+ (NEGATIVE); CLARITY CLOUDY (CLEAR); COLOR YELLOW (YELLOW); GLUCOSE NEGATIVE; KETONE NEGATIVE; LEUKO ESTERASE NEGATIVE (NEGATIVE); NITRITE NEGATIVE (NEGATIVE); SPECIFIC GRAVITY 1.025 (1.005-1.030); UROBILINOGEN 0.2 E.U./dl (0.2-1.0)
[2020-02-22 20:00] VITALS: BP 109/58
--- NOTE | 2020-02-22 20:29 | NUR ---
2000 TRANSFER TO [facility] CANCELLED AFTER DR TEE SPOKE WITH THE FIJANY STEPHENS VIA PHONE AFTER SPEAKING WITH DR BORGES AT LENGTH ABOUT THE PATIENT'S VOICED WISHES OVER THE LAST MONTH.. PER THE FIANCE SHE SAID HE WOULD NOT WANT ALL THIS AFTER THEIR DISCUSSION AND SAID SHE AGREED IT WOULD NOT BE WHAT HE WANTED AND THAT HE WOULD NOT WANT TRANSFERRED. TRANSFER CANCELLED
[2020-02-22 20:49] LABS: CREATININE 8.84 mg/dL (0.70-1.30)
[2020-02-22 21:04] LABS: ARTERIAL BLOOD GAS PH 7.262 (7.35-7.45)
[2020-02-22 21:06] LABS: ABG BASE EXCESS -7.6 mmol/L (-2.0-2.0)
[2020-02-22 21:09] LABS: POTASSIUM 7.5 mmol/L (3.5-5.1)
--- NOTE | 2020-02-22 21:15 | NUR ---
1 AMP OF DEXTROSE 50% GIVEN AT THIS TIME LAB HAS CALLED WITH CRITICAL GLUCOSE, UPON CHECKING WITH THE GLUCOMETER, BLOOD SUGAR WAS 16. PATIENT REMAINS SEDATED ON FENTANYL GTT. SKIN IS COOL AND CLAMMY. WILL RECHECK BLOOD SUGAR FOR EFFECTIVENESS OF MEDICATION
--- NOTE | 2020-02-22 21:30 | NUR ---
FAMILY MEMBERS UP TO VISIT, GIRLFRIEND IN TO SEE PATIENT AND POSSIBLY A SON. SON IS VERBALLY UPSET WITH THIS RN, STATES THAT HE WANTS TO KNOW WHY WE ARENT TREATING THE PATIENT WITH DIALYSIS AND THAT THE PATIENT HAD AGREED TO IT AND THAT HE IS GOING TO CALL HIS INSURANCE COMPANY IN THE MORNING AND FILE A COMPLAINT WITH THE HOSPITAL FOR REFUSING TO TREAT THE PATIENT. DR VARGAS MADE AWARE AND IS COMING TO TALK WITH FAMILY
--- NOTE | 2020-02-22 21:38 | NUR ---
DR VARGAS HERE TO TALK WITH PATIENTS FAMILY REGARDING THIS ISSUE
--- NOTE | 2020-02-22 21:41 | NUR ---
DR ALVAREZ NOTIFIED OF BLOOD GAS RESULT, NO NEW ORDERS
--- NOTE | 2020-02-22 22:05 | NUR ---
MORE FAMILY MEMBERS IN TO SEE THAT PATIENT. OTHER FAMILY MEMBERS HAVE LEFT.
[2020-02-23] VITALS (15 sets, daily range): BP systolic 122–179; BP diastolic 33–74
--- NOTE | 2020-02-23 00:50 | NUR ---
HEARTRATE DOWN TO LOWERS 40'S, BLOOD SUGAR TAKEN AT THIS TIME AND IS ONLY 24, 1 AMP OF DEXTROSE 50% GIVEN AT THIS TIME. WILL MONITOR FOR EFFECTIVENESS
--- NOTE | 2020-02-23 02:30 | NUR ---
PATIENT BATHED AND BED CHANGED AT THIS TIME. TOLERATED WELL. PATIENT VERY AGGITATED VERY EASILY. BILATERAL WRIST RESTRAINTS IN PLACE TO PREVENT INJURY TO SELF.
--- NOTE | 2020-02-23 05:00 | NUR ---
LAB CALLED WITH CRITICAL GLUCOSE OF 19, 1 AMP OF DEXTROSE 50% GIVEN AT THIS TIME, PATIENT AWAKENS TO VOICE AND TOUCH. REORIENTATION ATTEMPTS MADE. PATIENT QUICKLY DRIFTS BACK OFF TO SLEEP. RN WILL CONTINUE TO MONITOR
[2020-02-23 05:21] LABS: ALBUMIN 2.9 gm/dl (3.1-4.5); CREATININE 8.78 mg/dL (0.70-1.30); TOTAL PROTEIN 5.7 gm/dL (6.4-8.2)
[2020-02-23 05:26] LABS: POTASSIUM 5.7 mmol/L (3.5-5.1)
[2020-02-23 06:13] LABS: BASO % 0.3 % (0.0-1.0); EOS # 0.3 10*3/uL (0.0-0.4); EOS % 3.2 % (1.0-4.0); HEMATOCRIT 23.2 % (42.0-52.0); LYMPH # 1.3 10*3/uL (1.3-4.4); LYMPH % 16.3 % (27.0-41.0); MEAN CORPUSCULAR HGB 31.4 pg (27.0-31.0); MEAN CORPUSCULAR HGB CONC 30.2 g/dl (33.0-37.0); MEAN PLATELET VOLUME 11.8 fl (9.6-12.3); MONO # 1.1 10*3/uL (0.1-1.0); MONO % 13.5 % (3.0-9.0); NEUT # 5.2 10*3/uL (2.3-7.9); NEUT % 66.1 % (47.0-73.0); PLATELET COUNT AUTOMATED 136 10*3/uL (130-400); RED BLOOD COUNT 2.23 10*6/uL (4.50-5.90); RED CELL DISTRI WIDTH 14.8 % (0-14.5); WHITE BLOOD COUNT 7.9 10*3/uL (4.8-10.8)
--- NOTE | 2020-02-23 07:30 | NUR ---
PT FULLY AWAKE ABGS ARE BEING ATTEMPTED, VERSED GIVEN,DR SEDATION CLARIFIED WITH DR GRAY AND DR TEE, DIPROVAN DRIP PLACED AT 25 MCG AND FENTANYL DRIP AT 50MCG FOR SEDATION AND COMFORT, PT REMAINS INTUBATED WITH ETT26 CM AT LIP, OGT IN PLACE, NO FEEDINGS OF YET, RECTAL PROBE PLACED FOR TEMPERATURE MANAGEMENT NICOLE SECURE FOR CLEAR YELLOW, TURNED AND REPOSITIONED, HEELS OFF BED, ABGS HAVE BEEN CALLED TO DR ALVAREZ, PT CARE CLARIFIED WITH DR TEE
--- NOTE | 2020-02-23 07:32 | NUR ---
VERSED ADRIANNA PT IS SITTING UPRIGHT AND FULLY AWAKE
[2020-02-23 07:40] LABS: ARTERIAL BLOOD GAS PH 7.23 (7.35-7.45)
[2020-02-23 07:41] LABS: ABG BASE EXCESS -9.1 mmol/L (-2.0-2.0)
--- NOTE | 2020-02-23 11:03 | NUR ---
AMP D50 GIVEN FOR BS OF 61 WHICH WAS 109 AT 8AM
--- NOTE | 2020-02-23 12:00 | NUR ---
D50 EFFECTIVE REPEAT BS 107
--- NOTE | 2020-02-23 13:00 | NUR ---
DR ALVAREZ HERE,MINNIE THORNTON'D DUE TO BRADYCARDIA 42-44
--- NOTE | 2020-02-23 13:06 | NUR ---
VERSED GIVEN FOR SEDATION MINNIE THORNTON'Irma PER DR ALVAREZ FOR BRADYCARDIA
--- NOTE | 2020-02-23 13:52 | NUR ---
20g accucath placed in right cephalic veing with 1 attempt.
--- NOTE | 2020-02-23 14:30 | NUR ---
VERSED TO MAINTAIN SEDATION
--- NOTE | 2020-02-23 14:51 | NUR ---
HEART RATE REMAINS LOW AT 45-47
--- NOTE | 2020-02-23 15:48 | NUR ---
VERSED FOR SEDATION
--- NOTE | 2020-02-23 16:15 | NUR ---
AMP D 50 FOR BS OF 59
--- NOTE | 2020-02-23 16:20 | NUR ---
RESIDENT UPDATED ON BED GLU
--- NOTE | 2020-02-23 17:00 | NUR ---
D50 EFFECTIVEM, BS 104
--- NOTE | 2020-02-23 17:44 | NUR ---
VERSED FOR SEDATION
--- NOTE | 2020-02-23 20:17 | NUR ---
PT. RESTING IN BED. ADEQUATELY SEDATED ON FENTANYL DRIP AND PRN VERSED. IVF CONTINUE ORDERED VIA RA, BOTH SITES ASYMPT. LUNGS DIMINISHED BILAT, PULSE OX 99% ON 30% FIO2. ABDOMEN SOFTLY DISTENDED, OBESE, HYPOACTIVE. OGT INTACT, NO FEEDINGS AT THIS TIME. GENERALIZED ANASARCA NOTED WITH INCREASING EDEMA TO DEPENDENT EXTREMITIES. PT. OPENS EYES WITH ORAL CARE AND DOES NOT LIKE ORAL MOUTH CARE, CLENCHING TEETH. SOFT WRIST RESTRAINTS BILAT TO PREVENT ACCIDENTAL SELF-EXTUBATION. ROME STROUD RN
--- NOTE | 2020-02-23 20:51 | NUR ---
VERSED GIVEN AT 2045 FOR RESTLESSNESS AND PRIOR TO BED BATH. IMMEDIATELY EFFECTIVE. ROME STROUD RN
--- NOTE | 2020-02-23 21:44 | NUR ---
PT. COOL AND DAMP. BEDSIDE GLUC 61, AMP OF D50 GIVEN ORDERED. WILL CONTINUE TO MONITOR. ROME STROUD RN
--- NOTE | 2020-02-23 23:39 | NUR ---
VERSED GIVEN ORDERED AT 2320, IMMEDIATELY EFFECTIVE. ROME STROUD RN
[2020-02-24] VITALS (11 sets, daily range): BP systolic 130–175; BP diastolic 48–71
--- NOTE | 2020-02-24 02:12 | NUR ---
PT. GIVEN VERSED AND AMP OF D50 FOR RESTLESSNESS AND GLUC OF 67, PT. COOL AND DIAPHORETIC. WILL CONTINUE TO MONITOR. ROME STROUD RN
--- NOTE | 2020-02-24 02:12 | NUR ---
VERSED IMMEDIATELY EFFECTIVE. ROME STROUD RN
--- NOTE | 2020-02-24 04:48 | NUR ---
VERSED GIVEN ORDERED AT 0445 FOR RESTLESSNESS. IMMEDIATELY EFFECTIVELY. ROME STROUD RN
[2020-02-24 06:47] LABS: BASO % 0.3 % (0.0-1.0); EOS # 0.3 10*3/uL (0.0-0.4); EOS % 4.1 % (1.0-4.0); HEMATOCRIT 24.8 % (42.0-52.0); LYMPH % 13.9 % (27.0-41.0); MEAN CELL VOLUME 101.6 fl (80.0-94.0); MEAN CORPUSCULAR HGB 30.7 pg (27.0-31.0); MEAN CORPUSCULAR HGB CONC 30.2 g/dl (33.0-37.0); MEAN PLATELET VOLUME 11.5 fl (9.6-12.3); MONO # 0.9 10*3/uL (0.1-1.0); MONO % 12.6 % (3.0-9.0); NEUT % 68.6 % (47.0-73.0); PLATELET COUNT AUTOMATED 138 10*3/uL (130-400); RED BLOOD COUNT 2.44 10*6/uL (4.50-5.90); RED CELL DISTRI WIDTH 14.7 % (0-14.5); WHITE BLOOD COUNT 7.3 10*3/uL (4.8-10.8)
[2020-02-24 07:05] LABS: ALBUMIN 2.7 gm/dl (3.1-4.5); CREATININE 8.89 mg/dL (0.70-1.30); POTASSIUM 5.3 mmol/L (3.5-5.1)
[2020-02-24 07:07] LABS: TOTAL PROTEIN 5.9 gm/dL (6.4-8.2)
--- NOTE | 2020-02-24 07:29 | NUR ---
VERSED FOR SEDATION
--- NOTE | 2020-02-24 07:40 | NUR ---
VERSED GIVEN PRIOR TO ABGS TO MAINTAIN SEDATION DR CUNNINGHAM, UPDATED ON LOW BLOOD SUGAR-ORDERS RECIEVED
[2020-02-24 08:11] LABS: ARTERIAL BLOOD GAS PH 7.257 (7.35-7.45)
[2020-02-24 08:12] LABS: ABG BASE EXCESS -8.5 mmol/L (-2.0-2.0)
--- NOTE | 2020-02-24 08:36 | NUR ---
AWAKENS WITH STIMULATION, FOLLOWS COMMANDS REMAINS INTUBATED, VENT CARE DONE OGT SECURE-NO FEEDING AT PRESENT, NICOLE IN PLACE-SMALL URINE OUTPUT TURNED AND REPOSITIONED
--- NOTE | 2020-02-24 08:49 | NUR ---
PHYSICAL THERAPY Screen received, pt admitted for Renal failure after missing dialysis. Please consult PT if pts functional status declines from baseline. Thank you. Luis Amin SPT Shania Neely PT
--- NOTE | 2020-02-24 09:30 | NUR ---
CM in to see patient. He is currently intubated. Will continue to follow for discharge planning needs.
--- NOTE | 2020-02-24 09:37 | NUR ---
VERSED FOR SEDATION
--- NOTE | 2020-02-24 10:12 | NUR ---
PT [facility]IM[facility] OFFICE SHANIAK RIVAS-CALLED FOR POA PAPERWORK AWAITING FAX
--- NOTE | 2020-02-24 10:25 | NUR ---
[place] CALLED SHANIKA RIVAS OFFICE. PER REX DPOA-HC WAS FAXED TO FAX [phone]. THE PATIENTS SIGNIFICANT OTHER PICKED UP A HARD COPY OF THE PAPERS APPROXIMATELY 15 MINUNTES AGO.
--- NOTE | 2020-02-24 10:45 | NUR ---
DELMIS(poa) BROUGHT IN [employer]ANCE DIRECTIVES AND POA PAPERWORK WHICH WAS GIVEN TO BRANDIN IN DR SNOWDEN OFFICE
--- NOTE | 2020-02-24 10:49 | NUR ---
VERSED FOR SEDATION
--- NOTE | 2020-02-24 11:58 | NUR ---
VERSED FOR SEDATION
--- NOTE | 2020-02-24 12:04 | NUR ---
VERSED EFFECTIVE, PT REQUIRING MORE FREQ DOSES BECOMES EASILY AGITATED EVEN WHEN GETTING HIS BS DONE FIGHTS AGAINST VENT FENTANYL REMAINS AT 50MCG
--- NOTE | 2020-02-24 12:55 | NUR ---
DR ALVAREZ UPDATED ON PLANS FOR TERMINAL EXTUBATION
--- NOTE | 2020-02-24 13:40 | NUR ---
VERSED FOR AGITATION
--- NOTE | 2020-02-24 13:50 | NUR ---
DR PARRA NOTIFIED THAT FAMILY IS HERE AND WANTS TO TALK WITH DR CUNNINGHAM
--- NOTE | 2020-02-24 14:18 | NUR ---
DR PARRA CALLED AGAIN ABOUT FAMILY WANTING TO TALK WITH DR CUNNINGHAM
--- NOTE | 2020-02-24 14:37 | NUR ---
HOSPITALIST UP TO TALK WITH FAMILY PLANS TO EXTUBATE IN 30 MINUTES
--- NOTE | 2020-02-24 15:28 | NUR ---
ATIVAN 1 MG PRIOR TO EXTUBATION
--- NOTE | 2020-02-24 15:38 | NUR ---
MORPHINE SUPERINTENDENT DIVISION STARTED AT 3
--- NOTE | 2020-02-24 15:45 | NUR ---
EXTUBATED TO NC3L
--- NOTE | 2020-02-24 15:48 | NUR ---
FAMILY AT BEDSIDE
--- NOTE | 2020-02-24 15:48 | NUR ---
DR CUNNINGHAM NOTIFIED OF EXTUBATION
--- NOTE | 2020-02-24 17:10 | NUR ---
ATIVAN TIME ADJUSTED FROM THE TIME OF THE FIRST DOSE CHANGE FROM 12-6-12-6 TO 10-4-10-4
--- NOTE | 2020-02-24 17:11 | NUR ---
PT SLEEPING QUIETLY, NO RESP DISTRESS, FAMILY AT BEDSIDE
--- NOTE | 2020-02-24 18:56 | NUR ---
PT WITH FAMILY AT BEDSIDE
--- NOTE | 2020-02-24 19:10 | NUR ---
KATERINA CARLOS AND ALICIA NOTIFIED THAT PT
--- NOTE | 2020-02-24 20:03 | NUR ---
ALL LINES AND NICOLE REMOVED FROM PATIENT. [facility] INSTRUCTED TO HOLD PATIENT UNTIL DETERMINATION IF PATIENT IS AN ORGAN DONOR. FAMILY HAS LEFT AND STATED THEY WANT PATIENT TO BE RELEASED TO [facility] UPON APPROVAL/REJECTION. ROME STROUD RN
--- NOTE | 2020-02-24 20:30 | NUR ---
ALL BELONGINGS SENT HOME WITH FAMILY. PATIENT TO BE RELEASED TO [facility] DECISION. ROME STROUD RN
--- NOTE | 2020-02-24 20:31 | NUR ---
PATIENT TRANSFERRED TO [place].
--- NOTE | 2020-02-24 23:02 | NUR ---
PT'S BODY RELEASED BY [facility]. [facility] NOTIFIED. STATED THEY WOULD PICKUP MR. DHILLON IN THE AM. ROME STROUD RN
== END 2020-02-24 20:30 | disposition expired | DRG 133 ==
LOC: ED 12:27 → EDHOLD 14:19 → ICCU 14:19 → 5E 14:36 → ICCU 17:12
PROVIDERS: Emergency Medicine; Internal Medicine Critical Care Medicine; Student in an Organized Health Care Education/Training Program; ADMIT Student in an Organized Health Care Education/Training Program; ATTEND Student in an Organized Health Care Education/Training Program
PROC: 5A09357 Assistance with Respiratory Ventilation, Less than 24 Consecutive Hours, Continuous Positive Airway Pressure (ICD-10-PCS; principal; 2020-02-22)
PROC: 0BH17EZ Insertion of Endotracheal Airway into Trachea, Via Natural or Artificial Opening (ICD-10-PCS; 2020-02-22)
PROC: 5A1945Z Respiratory Ventilation, 24-96 Consecutive Hours (ICD-10-PCS; 2020-02-22)
DX: J96.20 Acute and chronic respiratory failure, unspecified whether with hypoxia or hypercapnia (principal); N17.0 Acute kidney failure with tubular necrosis; D53.9 Nutritional anemia, unspecified; E87.5 Hyperkalemia; J44.9 Chronic obstructive pulmonary disease, unspecified; E83.39 Other disorders of phosphorus metabolism; F17.210 Nicotine dependence, cigarettes, uncomplicated; N18.6 End stage renal disease; E78.5 Hyperlipidemia, unspecified; I13.2 Hypertensive heart and chronic kidney disease with heart failure and with stage 5 chronic kidney disease, or end stage renal disease; E11.22 Type 2 diabetes mellitus with diabetic chronic kidney disease; E11.40 Type 2 diabetes mellitus with diabetic neuropathy, unspecified; E66.9 Obesity, unspecified; E87.2 Acidosis; E87.8 Other disorders of electrolyte and fluid balance, not elsewhere classified; I49.8 Other specified cardiac arrhythmias; I25.10 Atherosclerotic heart disease of native coronary artery without angina pectoris; E11.649 Type 2 diabetes mellitus with hypoglycemia without coma; Z66 Do not resuscitate; I50.22 Chronic systolic (congestive) heart failure; Z51.5 Encounter for palliative care; Z88.6 Allergy status to analgesic agent; Z91.030 Bee allergy status; Z99.2 Dependence on renal dialysis; I25.2 Old myocardial infarction; Z68.38 Body mass index [BMI] 38.0-38.9, adult; G93.41 Metabolic encephalopathy